=== PATIENT | male | born 1935 | race Caucasian/White ===

== ENCOUNTER 2021-02-20 08:36 | Emergency (ER) | payer OTHER ==
[~2021-02-20] VITALS: Ht 177.8 cm; Wt 63.5 kg
== END 2021-02-20 09:30 | disposition home or self-care (01) ==
LOC: ER 08:36
DX: I10 Essential (primary) hypertension (principal); H54.7 Unspecified visual loss; W18.30XA Fall on same level, unspecified, initial encounter; F03.90 Unspecified dementia, unspecified severity, without behavioral disturbance, psychotic disturbance, mood disturbance, and anxiety
CPT/HCPCS: 99284

== ENCOUNTER 2021-04-13 09:05 | Emergency (ER) | payer OTHER ==
[~2021-04-13] VITALS: Ht 182.9 cm; Wt 54.4 kg
[~2021-04-13 09:05] MED LIST: QUET25 PO
[2021-04-13] MEDS ORDERED: MELATONIN5 M1 PO (09:21)
[2021-04-13] MEDS ORDERED: TRAZ50 PO (09:22)
[2021-04-13] MEDS ORDERED: Humibid-LA 600600 MG PO (09:22)
[2021-04-13] MEDS ORDERED: ACETAMINOPHEN500 MG PO (09:22)
[2021-04-13] MEDS ORDERED: DULCOLAX400 MG/5 M PO (09:23)
[2021-04-13] MEDS ORDERED: MYLANTA MAXIMUM10 ML PO (09:24)
[2021-04-13] MEDS ORDERED: PEPTO BISMOL PO (09:24)
[2021-04-13 11:07] LABS: Hematocrit 33.6 % (37.0-53.0); Hemoglobin 10.9 g/dL (13.5-17.5); Mean Corpuscular HGB 32.3 pg (26.0-34.0); Mean Corpuscular HGB Conc 32.4 g/dL (31.5-36.5); Mean Corpuscular Volume 100 fL (80-100); Mean Platelet Volume 9.7 fL (9.1-12.4); Platelet Count 317 K/mm3 (150-400); RDW Coefficient Variation 15.1 % (11.7-14.2); RDW Standard Deviation 55.6 fL (35.1-46.3); Red Blood Cell Count 3.37 M/mm3 (4.30-5.90)
[2021-04-13 11:34] LABS: Albumin, Blood 2.2 g/dL (3.4-5.0); Albumin/Globulin Ratio 0.6 (0.8-1.8); Bilirubin, Total 0.3 mg/dL (0.1-1.0); Bun/Creatinine Ratio 35.5 (12.0-20.0); Calcium, Blood 8.6 mg/dL (8.5-10.1); Creatinine, Blood 1.52 mg/dL (0.60-1.20); Globulin, Blood 3.5 g/dL (2.2-4.0); Potassium, Blood 3.2 mmol/L (3.5-5.5); Total Protein, Blood 5.7 g/dL (6.4-8.2)
[2021-04-13 11:44] LABS: BAND PERCENT MAN 7 % (0-8); BASOPHILS PERCENT MAN 0 % (0-2); EOSINOPHILS PERCENT MAN 0 % (0-6); LYMPHOCYTES ABSOLUTE MAN 0.83 K/mm3 (0.84-5.20); LYMPHOCYTES PERCENT MAN 16 % (21-46); MONOCYTES ABSOLUTE MAN 1.24 K/mm3 (0.16-1.47); MONOCYTES PERCENT MAN 24 % (4-13); NEUTROPHILS ABSOLUTE MAN 3.12 K/mm3 (1.96-9.15); SEG NEUTROPHILS PERCENT MAN 53 % (41-73); TOTAL CELLS COUNTED 100
== END 2021-04-13 14:50 | disposition home or self-care (01) ==
LOC: ER 09:05
PROVIDERS: Physician Assistant
DX: E86.0 Dehydration (principal); D64.9 Anemia, unspecified; R11.0 Nausea; Z79.899 Other long term (current) drug therapy
CPT/HCPCS: 36415; 80053; 85025; 99284; J7030